=== PATIENT | female | born 1990 | race Caucasian/White ===

== ENCOUNTER → 2017-11-15 10:30 | Outpatient (CLI) | payer OTHER, SELFPAY ==
[2017-11-15 11:27] LABS: Appearance Urine UA CLEAR; Bilirubin Urine UA NEGATIVE (NEGATIVE); Color Urine UA YELLOW; Glucose Urine UA NEGATIVE (Normal); Ketones Urine UA NEGATIVE (NEGATIVE); Leukocyte Esterase Urine UA TRACE (NEGATIVE); Nitrite Urine UA Negative (Negative); Occult Blood Urine UA TRACE-LYSED (Negative); Protein Urine UA NEGATIVE (Negative); Urobilinogen Urine UA 0.2 E.U./dL (0.2); pH Urine UA 5.5 (4.5-8.0)
[2017-11-15 11:40] LABS: RBC Urine 1-5/HPF (0-5/HPF); Squamous Epithelial Cell Urine 5-10 /HPF; WBC Urine 1-5/HPF (0-5/HPF)
[2017-11-15 11:41] LABS: Bacteria Urine Many (>30); Culture Indicated Urine Cult Not Indicated
[2017-11-15 11:53] LABS: Add Manual Diff / Slide Review NO; Basophils Percent Auto 0.8 % (0-2); Eosinophils Percent Auto 1.6 % (2-4); Hematocrit 35.3 % (36-46); Hemoglobin 12.2 g/dL (12.0-16.0); Lymphocytes Percent Auto 26.5 % (25-40); Mean Corpuscular HGB Conc 34.7 % (30-36); Mean Corpuscular Hemoglobin 30.8 PG (26-34); Mean Corpuscular Volume 88.7 fL (80-100); Monocytes Percent Auto 7.2 % (3-14); Neutrophils Absolute Auto 3600 /uL (3000-5900); Neutrophils Percent Auto 63.9 % (50-75); Platelet Count 236 X10^3/uL (150-400); Red Blood Cell Count 3.98 X10^6/uL (4.0-5.2); Red Cell Distribution Width 12.8 % (11.6-14.8); White Blood Cell Count 5.6 X10^3/uL (4.5-11.0)
[2017-11-15 12:24] LABS: Hepatitis B Surface Antigen NEGATIVE s/c (NEGATIVE)
== END ==
PROVIDERS: Visit Provider Family Medicine
DX: Z34.91 Encounter for supervision of normal pregnancy, unspecified, first trimester (principal)
CPT/HCPCS: 36415; 80055; 81001; 86787; 86850; 86900; 86901

== ENCOUNTER → 2017-12-24 13:35 | Outpatient (CLI) | payer OTHER, SELFPAY | PROVIDERS: Visit Provider Family Medicine | DX: R82.99 Other abnormal findings in urine (principal) | CPT/HCPCS: 87077; 87086; 87186 ==

== ENCOUNTER → 2018-01-20 09:29 | Outpatient (CLI) | payer OTHER, SELFPAY ==
[2018-01-25 16:06] LABS: AFP, Serum 64.7 ng/mL; Calc Gestational Age 17.3; Cigarette Smoker N; Donated Egg NOT GIVEN; Donor Egg Age NOT GIVEN; Estriol, Free 1.32 ng/mL; Inhibin A, Dimeric 241 pg/mL; Maternal Ethnicity NOT GIVEN; Maternal Weight 114 lbs; Number of Fetuses 1; Previous Pregnancy Down Syndro NOT GIVEN; hCG, MoM 1.04; hCG, Serum 35.5 IU/mL
== END ==
PROVIDERS: Visit Provider Family Medicine
DX: Z34.91 Encounter for supervision of normal pregnancy, unspecified, first trimester (principal); Z34.82 Encounter for supervision of other normal pregnancy, second trimester; Z3A.17 17 weeks gestation of pregnancy
CPT/HCPCS: 36415; 82105; 82677; 84702; 86336; 87077; 87086

== ENCOUNTER → 2018-02-06 14:05 | Outpatient (CLI) | payer OTHER, SELFPAY ==
--- NOTE | 2018-02-06 14:06 | DI.US.S_ITS ---
PROCEDURE: US OB >= 14 WEEKS FETUS INDICATIONS: ANATOMY OUTSIDE/PRIOR DATING DATA: Last menstrual period (LMP): 09/21/2017. LMP-based estimated date of delivery (RK): 06/28/2018. First dating scan (date and location): 02/06/2018. Estimated date of delivery (RK) from first dating scan: 06/26/2018. TECHNIQUE: Real-time scanning was performed of the fetus, with image documentation and biometric measurements. Endovaginal scanning: Not required COMPARISON: [facility], , OB >= 14 WEEKS FETUS, 11/26/2017, 11:24. FINDINGS: General: A single living intrauterine gestation is present. Presentation: Transverse, head to the maternal left. Placenta: Placental position is posterior, without previa. Amniotic fluid index: 16.1 cm, normal range is 5-24 cm. heart rate: 147 beats per minute. Maternal cervical canal: 3.5 cm long. Normal lower limit is 2.5 cm. biometrics: Biparietal diameter: 20 weeks one day Head circumference: 20 weeks 3 days Abdominal circumference: 20 weeks one day Femur length: 19 weeks 3 days Estimated gestational age from initial scan: not applicable. Composite gestational age from present scan: 20.0 weeks Estimated weight and percentile: 318 g at the 55th percentile Measurement variability for biometric dating: +/- 7 days from 14 weeks to 15 weeks 6 days gestation, +/- 10 days from 16 weeks to 21 weeks 6 days gestation, +/- 2 weeks from 22 weeks to 27 weeks 6 days gestation, +/- 3 weeks for 28 weeks gestation or later. weight reference: 4500 g or EFW >90/95% is considered macrosomia or large for gestational age. EFW <10% is small for gestational age. EFW 5% or less is considered intra-uterine growth restriction. Anatomic survey: Neuro: Ventricles are non-dilated at less than 10 mm. Cisterna magna is normal at 3-11 mm. Cerebellum is normal in size and morphology. Nuchal skin fold: Normal at less than 6 mm between 14-21 weeks gestational age. Face: Nose and lips, facial profile are normal. Spine: No evidence for spina bifida. Heart: 4-chambered heart is present, with normal ventricular outflow tracts. Diaphragm: Diaphragm is intact. Stomach: Left-sided stomach is present. Kidneys: No hydronephrosis. Normal is less than 5 mm in 2nd trimester, less than 7 mm in 3rd trimester. Cord: 3-vessel cord has orthotopic insertion. Bladder: Normal in size. Extremities: All 4 extremities identified. IMPRESSION: Single, live intrauterine gestation in transverse lie showing composite gestational age of 20 weeks, RK 06/26/2018. Normal anatomy. Dictated by: Josue Chavez M.D. on 02/06/2018 at 15:30 Approved by: Josue Chavez M.D. on 02/06/2018 at 15:35
== END ==
PROVIDERS: Visit Provider Family Medicine
DX: Z34.82 Encounter for supervision of other normal pregnancy, second trimester (principal); Z3A.20 20 weeks gestation of pregnancy
CPT/HCPCS: 76811

== ENCOUNTER → 2018-03-17 09:16 | Outpatient (CLI) | payer OTHER, SELFPAY | PROVIDERS: PCP Family Medicine; Visit Provider Family Medicine | DX: N89.8 Other specified noninflammatory disorders of vagina (principal) | CPT/HCPCS: 87070; 87205 ==

== ENCOUNTER → 2018-03-24 09:46 | Outpatient (CLI) | payer OTHER, SELFPAY ==
[2018-03-24 11:46] LABS: Hematocrit 32.5 % (36-46); Hemoglobin 11.1 g/dL (12.0-16.0)
[2018-03-24 12:19] LABS: GTT (PREG) 1 Hour PP 50gm Dose 69 mg/dL (76-139)
== END ==
PROVIDERS: PCP Family Medicine; Visit Provider Family Medicine
DX: Z34.92 Encounter for supervision of normal pregnancy, unspecified, second trimester (principal)
CPT/HCPCS: 36415; 82950; 85014; 85018

== ENCOUNTER → 2018-06-04 11:41 | Outpatient (CLI) | payer OTHER, SELFPAY ==
[2018-06-05 12:46] LABS: Strep Grp B PCR NEG for Grp B Strep
== END ==
PROVIDERS: PCP Family Medicine; Visit Provider Family Medicine
DX: Z3A.36 36 weeks gestation of pregnancy (principal)
CPT/HCPCS: 87653

== ENCOUNTER 2018-06-26 05:50 | Outpatient (CLI) | payer OTHER, SELFPAY | END 2018-06-26 06:49 | disposition home or self-care (01) | LOC: LABOR 06:03 → OB 11:52 | PROVIDERS: PCP Family Medicine; Visit Provider Obstetrics & Gynecology | DX: Z34.83 Encounter for supervision of other normal pregnancy, third trimester (principal); Z3A.39 39 weeks gestation of pregnancy | CPT/HCPCS: 59025; G0378; G0379 ==

== ENCOUNTER 2018-06-27 12:13 | Inpatient (IN) | payer OTHER, SELFPAY ==
[2018-06-27 13:58] LABS: Add Manual Diff / Slide Review NO; Basophils Percent Auto 0.8 % (0-2); Eosinophils Percent Auto 0.5 % (2-4); Hematocrit 34.3 % (36-46); Hemoglobin 11.6 g/dL (12.0-16.0); Lymphocytes Percent Auto 14.5 % (25-40); Mean Corpuscular Hemoglobin 31.2 PG (26-34); Mean Corpuscular Volume 91.7 fL (80-100); Monocytes Percent Auto 4.7 % (3-14); Neutrophils Absolute Auto 10400 /uL (1500-7000); Neutrophils Percent Auto 79.5 % (50-75); Platelet Count 239 X10^3/uL (150-400); Red Blood Cell Count 3.73 X10^6/uL (4.0-5.2); Red Cell Distribution Width 14.1 % (11.6-14.8); White Blood Cell Count 13.1 X10^3/uL (4.5-11.0)
[2018-06-27] MEDS: LACTATED RINGERS 1,000 ML 100 ML IV (15:46)
--- NOTE | 2018-06-27 15:54 | P.HPOB_ITS ---
OB HPI Date/Time Date of admission: 06/27/18 Date Patient Seen: 06/27/18 Time Patient Seen: 16:45 History of Present Condition Chief complaint: OBS : 2 Para: 1 Estimated Date of Delivery: 06/28/18 Estimated Gestational Age (weeks): 39w6d Narrative: Zeinab Osborne is a 28 year old at 39w6d who presented with PROM. The pt reports feeling leaking fluid starting around 11:45am this morning. She was not having any contractions at the time. She denies any vaginal bleeding. She has been feeling baby move regularly. Indications Other reason(s) for admission: ROM History of Present care: good care and initiated at week # (9) Dating criteria: LMP confirmed by 1st trimester US Ultrasounds: normal mid trimester US Obstetrical complications: none Medical complications: none Preadmission Labs Blood type: A (+) positive -: Antibody screen: negative, GBS status: negative, HBsAG: negative, HIV: negative and RPR/VDLR: negative -: Rubella: not immune and Varicella: immune HCT: 35.3 Quad screen: Normal Urine: Klebsiella UTI - negative KWAME 1 hr GTT: 69 Prior (ies) History: 02/02/16 at 40wks, 7lb baby girl, no complications Evaluation Evaluation Baseline heart rate: 125 Variability: Moderate (11-25) monitor accelerations: Present monitor decelerations: Absent Contraction Frequency (minutes): 2 Uterine Contraction Intensity: Strong/Firm Category of Tracing: I Cervical dilation (cm): 10 Cervical effacement (%): 100 station: 0 Laboratory results: Laboratory Tests 06/27/18 06/27/18 13:20 13:20 WBC 13.1 H RBC 3.73 L Hgb 11.6 L Hct 34.3 L MCV 91.7 MCH 31.2 MCHC 34.0 RDW 14.1 Plt Count 239 Neut % (Auto) 79.5 H Lymph % (Auto) 14.5 L [place] % (Auto) 4.7 Eos % (Auto) 0.5 L Baso % (Auto) 0.8 Neut # (Auto) 23265 H Blood Type A Positive Antibody Screen Negative PFSH Medical History Endometriosis (Resolved) Surgical History Status post laparoscopy (Resolved 2010) Meds Home Medications Medication Instructions Recorded Confirmed Type 1 tab PO DAILY 11/15/17 06/27/18 History vitamin,calcium,sxtdwspb-fatf-kfklc acid tablet breast pump #1 each 06/04/18 Rx Allergies Allergy/AdvReac Type Severity Reaction Status Date / Time No Known Drug Allergies Allergy Verified 11/15/17 10:33 Exam Narrative Exam Narrative: Gen: NAD, laying comfortably in bed, appears well CV: RRR, no murmurs Resp: clear to auscultation bilaterally Abd: soft, nondistended, gravid Ext: no edema Objective Labs Result Diagrams: 06/27/18 13:20 Labs: Laboratory Results - last 24 hr 06/27/18 06/27/18 13:20 13:20 WBC 13.1 H RBC 3.73 L Hgb 11.6 L Hct 34.3 L MCV 91.7 MCH 31.2 MCHC 34.0 RDW 14.1 Plt Count 239 Neut % (Auto) 79.5 H Lymph % (Auto) 14.5 L [place] % (Auto) 4.7 Eos % (Auto) 0.5 L Baso % (Auto) 0.8 Neut # (Auto) 74108 H Blood Type A Positive Antibody Screen Negative Assessment and Plan (1) Term : Current visit: Yes Status: Acute (2) PROM (premature rupture of membranes): Current visit: Yes Status: Acute Plan: Plan: 28yo at 39w6d here with PROM at 11:45am this morning. No complications with . Now with regular painful contractions at the time of this exam , with complete cervical dilation. GBS negative, Rh positive. - Expectant management, anticipate - GBS negative, no antibiotic prophylaxis - Epidural for pain control in place - FHT reassuring
[2018-06-27] MEDS: OXYTOCIN 10 UNIT/ML VIAL IM (19:00)
--- NOTE | 2018-06-27 19:11 | PM.OBPRVD ---
Delivery date: 06/27/18 Intrapartal events: None Cervical ripening method: none Induction method: none Delivery monitor: external FHT Route of delivery: Episiotomy description: None L&D Laceration Description: Perineal - 2nd Degree Delivery repair: chromic (3-O) Estimated blood loss (mL): 200 Anesthesia type: Epidural Complications: None Narrative: PROCEDURE: at 39w6d presented with PROM and was admitted to Labor and Delivery. The patient progressed through the 1st stage over 5 hours. She went into active labor without induction/augmentation. Pain was controlled with an epidural. The patient progressed through the 2nd stage over 30 minutes and delivered a viable male infant with APGARs 9/9 at 18:40 via without complications. The perineum and vagina were inspected with small 2nd degree laceration repaired with 3-O Chromic. PREPROCEDURE DIAGNOSIS: Intrauterine at 39w6d GBS negative RH positive POSTPROCEDURE DIAGNOSIS: Intrauterine at 39w6d, delivered Same as preprocedure ROM APPEARANCE: Clear BABY A DELIVERY TIME: 18:40 BABY A OUTCOME: Viable BABY A WEIGHT: [id number] BABY A NUCHAL CORD: No BABY A CORD GASES OBTAINED: No PLACENTA DELIVERY TIME: 18:50 PLACENTA APPEARANCE: Intact Baby 1: Infant gender: Male Presentation: vertex position: Right Occiput Anterior Placenta delivery description: Spontaneous cord vessel description: 3 Vessels score (1 min): 9 score (5 min): 9 Plan for aftercare: Normal care support
[2018-06-27] MEDS: IBUPROFEN 600 MG TABLET PO (20:31)
[2018-06-27 21:30] VITALS: TEMP 37.1
[2018-06-27 22:36] VITALS: BP 111/70
[2018-06-28 02:58] VITALS: TEMP 37.1
[2018-06-28] MEDS: IBUPROFEN 600 MG TABLET PO ×2 (02:58→08:40)
[2018-06-28 08:40] VITALS: TEMP 37.2
[2018-06-28] MEDS: PRENATAL VIT,CALC/IRON/FOLIC 1 TABLET 1 TAB PO (08:40)
[2018-06-28] MEDS: DOCUSATE 250 MG CAPSULE PO (08:40)
--- NOTE | 2018-06-28 14:41 | PM.OBDS.1 ---
Discharge Providers Date of admission: 06/27/18 12:13 Primary care physician: Kori Acosta MD Consults: 06/27/18 19:39 Consult to Associate Director Of Sales Routine Comment: Discharge provider: Kori Acosta MD Discharge Date: 06/28/18 Summary Date Patient Seen: 06/28/18 Time Patient Seen: 07:45 Hospital Course: Patient presented with PROM at 39 weeks 6 days. She progressed into active labor without induction or augmentation. She received an epidural for pain control. She had a spontaneous vaginal delivery of a viable baby boy at 6:40 p.m. on 06/27/2018 without complications. A small second-degree perineal laceration was then repaired. Patient tolerated delivery well. , there are no complications. At the time of discharge she was voiding, ambulating, and passing flatus without difficulty. Her lochia was decreasing appropriately. She is breast-feeding with good latch. She will follow up for her 6 week appointment. She is undecided regarding control. Peripartum Data Infant Delivery Method: Natural Vaginal Laceration description: Perineal - 2nd Degree Episiotomy description: None Procedures: Spontaneous vaginal delivery complications: none [place] 1: Gender: Male Disposition of : home Discharge Diagnosis (1) Term : Status: Acute (2) PROM (premature rupture of membranes): Status: Acute (3) (spontaneous vaginal delivery): Status: Acute Status at Discharge Functional status at discharge: independent ambulation Overall status at discharge: patient is progressing back to baseline Time Spent with Patient Total time spent providing and/or coordinating discharge services: Greater than 30 minutes Objective Labs Result Diagrams: 06/27/18 13:20 Labs: Laboratory Results - last 24 hr 06/27/18 13:20 Antibody Screen Negative Discharge Plan Discharge Plan Patient Disposition: Home Discharge Med Rec/Prescriptions Prescriptions: No Action breast pump device .Route .MEDSUPPLY Qty: 1 RF: 0 prenat.vits,nettie,dda-hedc-zpqtk [ Vitamin] tablet 1 tab PO DAILY RF: 0 Follow up/Referrals: Kori Acosta MD [Primary Care Provider] - 6 Weeks Provider Discharge Instructions Diet: Diet as Tolerated and Regular Skin/Wound/Dressing Care Report to your healthcare provider any signs of infection, such as:: chills, fever, increased pain and unusual drainage Visit Report/Discharge Packet Instructions: DI for Labor and Delivery, Vaginal Discharge Data Primary Care Provider: Kori Acosta Attending Provider: Kori Acosta Admit Date/Time: 06/27/18 12:13
[2018-06-28 16:05] VITALS: BP 113/68; PULSE 78; RESP 16; TEMP 37.2
== END 2018-06-28 17:35 | disposition home or self-care (01) | DRG 807 ==
PROVIDERS: Admitting Provider Family Medicine; PCP Family Medicine; Visit Provider Family Medicine
DX: O42.02 Full-term premature rupture of membranes, onset of labor within 24 hours of rupture (principal); Z37.0 Single live birth; Z3A.39 39 weeks gestation of pregnancy; O70.1 Second degree perineal laceration during delivery
CPT/HCPCS: 01967; 59050; 59400; 84112; 85025; 86850; 86900; 86901; G0379; J2590

== ENCOUNTER → 2021-03-28 11:25 | Outpatient (CLI) | payer OTHER, SELFPAY ==
[2021-03-28 12:34] LABS: Add Manual Diff / Slide Review NO; Basophils Absolute Auto 100 /uL (0-100); Basophils Percent Auto 1.3 % (0-2); Eosinophils Absolute Auto 100 /uL (0-450); Eosinophils Percent Auto 2.7 % (2-4); Hematocrit 40.8 % (36-46); Hemoglobin 13.4 g/dL (12.0-16.0); Lymphocytes Absolute Auto 1800 /uL (1100-4500); Lymphocytes Percent Auto 32.9 % (25-40); Mean Corpuscular HGB Conc 32.9 % (30-36); Mean Corpuscular Hemoglobin 29.7 PG (26-34); Mean Corpuscular Volume 90.2 fL (80-100); Monocytes Absolute Auto 400 /uL (0-900); Monocytes Percent Auto 8.1 % (3-14); Neutrophils Absolute Auto 3000 /uL (1500-7000); Platelet Count 276 X10^3/uL (150-400); Red Blood Cell Count 4.52 X10^6/uL (4.0-5.2); Red Cell Distribution Width 13.4 % (11.6-14.8); White Blood Cell Count 5.4 X10^3/uL (4.5-11.0)
[2021-03-28 12:53] LABS: Alanine Aminotransferase 11 IU/L (<35); Albumin 4.9 g/dL (3.5-5.0); Albumin Globulin Ratio 1.5 (1.0-2.8); Alkaline Phosphatase 67 U/L (38-126); Aspartate Aminotransferase 24 IU/L (14-36); BUN Creatinine Ratio 19.2 (6-22); Bilirubin Total 0.4 mg/dL (0.2-1.3); Blood Urea Nitrogen 14 mg/dL (7-17); Calcium 10.2 mg/dL (8.4-10.2); Carbon Dioxide 24 mmol/L (22-32); Chloride 104 mmol/L (98-107); Estimated Glomerular Filt Rate > 60.0 mL/min (>60); Globulin 3.3 g/dL (1.7-4.1); Glucose 90 mg/dL (70-100); HEMOLYSIS < 15 (0-50); Potassium 4.5 mmol/L (3.4-5.1); Sodium 139 mmol/L (137-145); Total Protein 8.2 g/dL (6.3-8.2)
[2021-03-28 13:24] LABS: TSH w/ Reflex to FT4 0.84 uIU/mL (0.47-4.68)
== END ==
PROVIDERS: PCP Family Medicine; Referring Provider Family Medicine; Visit Provider Family Medicine
DX: R23.2 Flushing (principal)
CPT/HCPCS: 36415; 80053; 84443; 85025